=== PATIENT | male | born 2000 | race Caucasian/White ===

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

== ENCOUNTER 2022-04-03 07:46 | Emergency (ER) | payer BC, OTHER ==
[~2022-04-03] VITALS: Ht 188 cm; Wt 143.2 kg
[~2022-04-03 07:46] MED LIST changes: +MOTR200T44 PO; +[UNRECOGNIZED DRUG - CODE] TOP; -[UNRECOGNIZED DRUG - CODE] TOP
[2022-04-03 07:48] VITALS: BP 134/80
== END 2022-04-03 09:00 | disposition left against medical advice (07) ==
LOC: M ED 07:46
DX: Z53.21 Procedure and treatment not carried out due to patient leaving prior to being seen by health care provider (principal)